=== PATIENT | male | born 1950 | race Two or more races ===

== ENCOUNTER 2018-10-04 12:05 | Outpatient (CLI) | payer OTHER | END 2018-10-04 12:13 | disposition home or self-care (01) | LOC: RAD 12:05 | DX: R05 Cough (principal) ==

== ENCOUNTER → 2019-10-03 | Outpatient (CLI) | payer OTHER | END | disposition home or self-care (01) | LOC: RAD 14:29 | DX: R05 Cough (principal) ==

== ENCOUNTER → 2020-10-01 | Outpatient (CLI) | payer OTHER | END | disposition home or self-care (01) | LOC: RAD 14:00 | PROVIDERS: ATTEND General Practice | DX: R05 Cough (principal) ==